=== PATIENT | female | born 1990 | race African-American/Black ===

== ENCOUNTER 2017-09-07 19:06 | Emergency (ER) | payer SELFPAY ==
[~2017-09-07] VITALS: Ht 160 cm; Wt 80.0 kg
[2017-09-07 19:07] VITALS: BP 141/98; PULSE 97; RESP 16; TEMP 98.6; O2SAT 100
== END 2017-09-07 19:45 | disposition left against medical advice (07) ==
LOC: NED 19:06
DX: R21 Rash and other nonspecific skin eruption (principal); Z53.21 Procedure and treatment not carried out due to patient leaving prior to being seen by health care provider
CPT/HCPCS: 99281